=== PATIENT | female | born 1965 | race Caucasian/White ===

== ENCOUNTER → 2018-06-24 | Outpatient (CLI) | payer OTHER ==
[~2018-06-24] MED LIST: ANTIVERT25 MG PO; FAMCYCLOVIR 50500 M1; LINZESS145 MCG; TOLTERODINE TART2 MG; ZOFRAN ODT4 MG PO
--- NOTE | 2018-06-25 09:44 | TST ---
[place] [address] [employer] STRESS TEST Name: DORITA HOFF Room: [facility]#: [id number] Admission: 06/24/18 Attend Phys: Ernie Johnson MD Discharge: Date of : 67 Date of Service: 06/24/18 1749 Report #: [id number] THIS REPORT FOR: //name// CC: Ernie Johnson MD INDICATION: Chest pain. RISK FACTORS: None documented. CARDIAC MEDICATIONS: None. The patient exercised per standard [facility] protocol for a total of 8 minutes and 55 seconds. The patient achieved 100% of the age predicted maximum heart rate and an energy expenditure equivalent to 10.16 METS. The resting blood pressure was 117/78 mmHg with a resting pulse rate of 79 beats per minute. At peak exercise, the blood pressure was 155/73 mmHg with a peak stress heart rate of 171 beats per minute. In recovery, the blood pressure was 128/84 mmHg with a recovery heart rate of 81 beats per minute. The baseline 12-lead EKG shows sinus rhythm with no significant ST or T-wave abnormalities. EKGs obtained during and post-exercise showed sinus rhythm and sinus tachycardia with no significant ST or T-wave changes when compared to baseline. There were no significant stress-induced arrhythmias. The patient exhibited excellent exercise tolerance. IMPRESSION: 1. Clinical response: Nonischemic. 2. EKG response: Nonischemic. CONCLUSION: This standard [facility] protocol EKG stress test shows no EKG or clinical evidence to suggest stress-induced ischemia. This is a low-risk study. <ELECTRONICALLY SIGNED> By: Clifford Burgos MD, FACC 06/25/18 0944 1749 [id number] Clifford Burgos MD, FACC /nt
== END ==
LOC: M.CRD 10:50
DX: R07.89 Other chest pain (principal); R30.0 Dysuria